=== PATIENT | female | born 1945 | race Caucasian/White ===

== ENCOUNTER → 2024-06-01 | Day surgery (SDC) | payer MEDICARE, BC ==
[~2024-06-01] MED LIST: Acetaminophen 500 MG TAB ONE; Sodium Bicarbonate 2.5 MEQ/5 ML SDV ONE
== END ==
LOC: RAD 09:33
PROVIDERS: ATTEND Neurological Surgery
PROC: 009U3ZX Drainage of Spinal Canal, Percutaneous Approach, Diagnostic (ICD-10-PCS; principal; 2024-06-01)
DX: G91.9 Hydrocephalus, unspecified (principal)
CPT/HCPCS: 62270